=== PATIENT | female | born 1955 | race Caucasian/White ===

== ENCOUNTER 2021-02-18 16:04 | Emergency (ER) | payer MEDICARE, MEDICAID, OTHER, SELFPAY ==
--- NOTE | 2021-02-18 | ECG_ITS ---
Test Reason : HTN Blood Pressure : / mmHG Vent. Rate : 084 BPM Atrial Rate : 084 BPM P-R Int : 172 ms QRS Dur : 102 ms QT Int : 408 ms P-R-T Axes : 052 -03 049 degrees QTc Int : 482 ms Normal sinus rhythm with sinus arrhythmia Incomplete right bundle branch block Moderate voltage criteria for LVH, may be normal variant ( R in aVL , [place] product ) Nonspecific ST abnormality Abnormal ECG No previous ECGs available Referred By: Generic ED Physician Electronically Signed By:DUKE CARDOSO MD
[2021-02-18 16:39] VITALS: BP 210/103; PULSE 86; RESP 18; TEMP 36.8; O2SAT 98; BMI 31.1
[2021-02-18 17:19] VITALS: BP 216/104; RESP 18
[2021-02-18 17:26] LABS: MANUAL DIFF FLAG NO
[2021-02-18 17:29] LABS: Basophils Percent Auto 0.1 % (0-2); Eosinophils Absolute Auto 0.1 X10*3/uL (0.0-0.4); Eosinophils Percent Auto 0.8 % (0-4); Hematocrit 42.6 % (37.0-47.0); Hemoglobin 13.7 g/dl (12.0-16.0); Imm Gran Abs Auto 0.02 X10*3/uL (0.00-0.03); Imm Gran Pct Auto 0.2 % (0.0-0.4); Lymphocytes Absolute Auto 2.4 X10*3/uL (1.2-4.9); Mean Corpuscular HGB Conc 32.2 g/dl (31.0-35.0); Mean Corpuscular Hemoglobin 28.6 pg (27.0-33.0); Mean Corpuscular Volume 88.9 fL (80.0-98.0); Mean Platelet Volume 9.6 fL (9.4-12.3); Monocytes Absolute Auto 0.5 X10*3/uL (0.1-1.2); Monocytes Percent Auto 5.7 % (2-11); Neutrophils Absolute Auto 5.6 x10*3/uL (2.0-8.3); Neutrophils Percent Auto 65.2 % (45-73); Platelet Count 277 X10*3/uL (160-400); Red Blood Count 4.79 X10*6/uL (4.20-5.50); Red Cell Distribution Width 13.6 % (11.0-16.0); White Blood Count 8.5 X10*3/uL (4.8-10.8)
[2021-02-18 17:54] LABS: Anion Gap 12 (12-20); Blood Urea Nitrogen 12 mg/dL (9-16); Calcium 9.6 mg/dL (8.4-10.2); Carbon Dioxide 24 mmol/L (22-29); Chloride 105 mmol/L (96-108); Creatinine Clr Calc Pharmacy 49.8; Estimated Glomerular Filt Rate 58; Glucose Random 140 mg/dL (60-115); Potassium 4.2 mmol/L (3.3-5.1); Sodium 137 mmol/L (135-145)
--- NOTE | 2021-02-18 18:38 | ED_ITS ---
HPI - Neuro Symptoms/Deficit General Chief Complaint: Neuro Symptoms/Deficit Stated Complaint: High blood pressure/blurry vision Time Seen by Provider: 02/18/21 18:24 Source: patient and family History of Present Illness HPI Narrative: This is a 66-year-old female with history of hypertension, who is supposed to be on hydrochlorothiazide 25 mg daily, losartan, and lisinopril. Daughter states that she is not always compliant with her medication. Today she had noted that she felt like she had blurred vision and then took her hydrochlorothiazide. She has not taken any other blood pressure medicine today. Patient also noted that she had a slight headache and some nausea. Her headache is gone now. She still feels like her vision is little blurry. Her so n checked her face and extremities and did not notice any neurologic deficit. Patient denies any trouble speaking, denies any focal weakness or numbness in arms or face or legs. Related Data Allergies Allergy/AdvReac Type Severity Reaction Status Date / Time aspirin [ASA] AdvReac Intermediate Stomach Verified 02/18/21 16:38 Upset Review of Systems Review of Systems: Yes all other systems are reviewed and are negative Constitutional: Constitutional: Denies headache(s) and Denies weakness Eyes: Eyes: Reports change in vision and Denies loss of vision ENT: Denies headache(s) Cardiovascular: Cardiovascular: Reports as per HPI and Reports no additional cardiovascular complaints Respiratory: Respiratory: Reports as per HPI and Reports no additional respiratory complaints Gastrointestinal: Gastrointestinal: Reports nausea and Denies vomiting Neurologic: Denies confusion, Denies headache(s), Denies loss of vision, [place] es Sensory deficit (Neuro) and Denies weakness Psychiatric: Psychiatric: Denies confusion [facility] Past Medical History Medical History (Updated 02/18/21 @ 19:38 by Jt Stoddard MD) Anxiety Depression Hypertension Surgical History (Updated 02/18/21 @ 16:43 by Pooja Wise RN) H/O hand surgery Social History Social History Advance Directives: No Advance Directives Information Provided: No Patient : No Physical Exam Vital Signs: Vital Signs: Last Vital Signs Temp 98 F 02/18/21 19:03 Pulse 87 02/18/21 19:03 Resp 18 02/18/21 19:03 BP 154/69 H 02/18/21 19:03 Pulse Ox 97 11/12/21 19:03 Body Mass Index 31.1 Const: General: No confusion Orientation/consciousness: No confusion HENMT: Head: Yes normal to inspection Eyes: General: appearance normal, both eyes and all related structures Eyelids: Yes eyelids normal Conjunctivae: conjunctivae normal Pupils: Equal, round and reactive pupils present Neck: Neck: Yes normal visual inspection and Yes supple Chest: Chest palpation & inspection: normal inspection of the chest Resp: Effort & Inspection: normal respiratory effort Auscultation: clear to auscultation bilaterally Cardio: Rate: regular rate Rhythm: regular rhythm Heart sounds: S1 normal heart sound present, S2 normal heart sound present, no gallops, no murmurs and no rubs GI: Palpation (GI): Soft to palpation, nontender and Other GI palpation findings present (Non-distended) Auscultation: normal bowel sounds Skin: General skin exam: no rashes or lesions noted Neuro: General: No confusion Cranial nerves: Yes Equal, round and reactive pupils present Cognition (Neuro): normal cognition Motor exam (neuro): 5/5 motor strength present throughout Sensory Exam: No Sensory deficit (Neuro) Extrem: General: Yes normal to inspection and Yes no pedal edema Psych: Appearance: grossly normal Affect: normal affect MDM - Neuro Symptoms/Deficit MDM Narrative Medical decision making narrative: Patient was re-evaluated at about 19:30. She felt better and states that her visual symptoms had resolved. Her blood pressure had improved to 154/69, after receiving losartan 50 mg p.o. and Ativan 1 mg p.o.. Patient has no neurologic deficit, and while her blood pressure was initially elevated, I do not believe there is any clinical evidence of TIA or CVA. Labs unremarkable. Patient is advised to make sure the compliant with her medical regimen, not to miss any of her blood pressure medicine doses Lab Data Attestation: I reviewed the patient's lab results. Result diagrams: 02/18/21 17:23 02/18/21 17:23 Labs: Lab Results 02/18/21 02/18/21 02/18/21 Range/Units 17:23 17:23 17:23 WBC 8.5 (4.8-10.8) X10*3/uL RBC 4.79 (4.20-5.50) X10*6/uL Hgb 13.7 (12.0-16.0) g/dl Hct 42.6 (37.0-47.0) % MCV 88.9 (80.0-98.0) fL MCH 28.6 (27.0-33.0) pg MCHC 32.2 (31.0-35.0) g/dl RDW 13.6 (11.0-16.0) % Plt Count 277 (160-400) X10*3/uL MPV 9.6 (9.4-12.3) fL Immature Gran % (Auto) 0.2 (0.0-0.4) % Neut % (Auto) 65.2 (45-73) % Lymph % (Auto) 28.0 (20-40) % [place] % (Auto) 5.7 (2-11) % Eos % (Auto) 0.8 (0-4) % Baso % (Auto) 0.1 (0-2) % Lymph # (Auto) 2.4 (1.2-4.9) X10*3/uL [place] # (Auto) 0.5 (0.1-1.2) X10*3/uL Eos # (Auto) 0.1 (0.0-0.4) X10*3/uL Baso # (Auto) 0.0 (0.0-0.2) X10*3/uL Abs Immat Gran (auto) 0.02 (0.00-0.03) X10*3/uL Absolute Neuts (auto) 5.6 (2.0-8.3) x10*3/uL Absolute Nucleated RBC 0.000 (0.0-0.012) X10*3/uL Nucleated RBC % (auto) 0.0 (0.0-0.2) /100WBC Sodium 137 (135-145) mmol/L Potassium 4.2 (3.3-5.1) mmol/L Chloride 105 (96-108) mmol/L Carbon Dioxide 24 (22-29) mmol/L Anion Gap 12 (12-20) BUN 12 (9-16) mg/dL Creatinine 0.97 (0.5-1.4) mg/dL Estim Creat Clear Calc 49.8 Estimated GFR 58 Random Glucose 140 H (60-115) mg/dL Calcium 9.6 (8.4-10.2) mg/dL Troponin I High Sens 4.0 (<3.5-17.0) ng/L Discharge Plan Discharge Clinical Impression: Poorly-controlled hypertension Patient Disposition: Home, Self-Care Instructions: Hypertension (ED) Additional Instructions: Make sure to take your medicines as prescribed by your primary care physician. Do not skip any doses of her blood pressure medicine. Return for any new or worsened symptoms Discharge Date/Time: 02/18/21 19:59
[2021-02-18 19:03] VITALS: BP 154/69; PULSE 87; RESP 18; TEMP 36.6; O2SAT 97
[2021-02-18] MEDS: Losartan Potassium 50 MG TABLET PO (19:03)
[2021-02-18] MEDS: LORazepam 0.5 MG TABLET PO (19:03)
== END 2021-02-18 19:59 | disposition home or self-care (01) ==
PROVIDERS: Emergency Provider Emergency Medicine
DX: I10 Essential (primary) hypertension (principal); Z91.14 Patient's other noncompliance with medication regimen
CPT/HCPCS: 36415; 80048; 84484; 85025; 93005; 99283; 99284